=== PATIENT | female | born 1990 ===

== ENCOUNTER 2020-06-21 01:07 | Inpatient (IN) | payer OTHER ==
[2020-06-21] MEDS ORDERED: Butorphanol 1 MG/ML SDV IVPUSH PRN (01:14)
[2020-06-21] MEDS ORDERED: Terbutaline 1 MG/ML SDV SUBCUT PRN (01:14)
[2020-06-21] MEDS ORDERED: Methylergonovine 0.2 MG/1 ML Amp IM PRN (01:14)
[2020-06-21] MEDS ORDERED: Sodium Chloride 0.9% 2.5 ML Syringe FLUSH PRN (01:14)
[2020-06-21] MEDS ORDERED: Sodium Chloride 0.9% 10 ML Syringe FLUSH PRN (01:14)
[2020-06-21] MEDS ORDERED: Water For Irrigation,Sterile 1,000 ML Container IRR PRN (01:14)
[2020-06-21] MEDS ORDERED: Misoprostol 200 MCG Tab PO PRN (01:14)
[2020-06-21] MEDS ORDERED: Tranexamic Acid 1,000 MG in Sodium Chloride 0.9% 100 ML IV PRN (01:14)
[2020-06-21] MEDS ORDERED: Sodium Chloride 0.9% 10 ML SDV IV PRN (01:14)
[2020-06-21] MEDS ORDERED: Misoprostol 25 MCG (1/4 of 100 MCG) Tab VAG PRN (01:14)
[2020-06-21] MEDS ORDERED: Ondansetron 4 MG/2 ML SDV IVPUSH PRN (01:14)
[2020-06-21] MEDS ORDERED: Nalbuphine 10 MG/1 ML Vial IVPUSH PRN (01:14)
[2020-06-21] MEDS ORDERED: Lidocaine 1% 50 ML MDV INJECT PRN (01:14)
[2020-06-21] MEDS ORDERED: Carboprost Tromethamine 250 MCG/1 ML Amp IM PRN (01:14)
[2020-06-21] MEDS ORDERED: Oxytocin/0.9 % Sodium Chloride 30 UNIT/500 ML BAG IV SCH ×2 (01:15)
[2020-06-21] MEDS: Lactated Ringers 1,000 ML IV SCH ×4 (02:15→21:12)
[2020-06-21] MEDS: Misoprostol 25 MCG (1/4 of 100 MCG) Tab VAG PRN ×2 (06:07→14:36)
[2020-06-21] MEDS ORDERED: Oxytocin/0.9 % Sodium Chloride 30 UNIT/500 ML BAG ONE (19:52)
[2020-06-21] MEDS ORDERED: Ropivacaine HCl/PF 100 ML ONE (20:46)
[2020-06-21] MEDS ORDERED: fentaNYL 100 MCG/2 ML SDV ONE (20:46)
--- NOTE | 2020-06-21 21:05 | PCM.PREANE ---
Preanesthetic Assessment - Anesthesia/Transfusion/Family Hx Anesthesia History: No Prior Anesthesia Family History of Anesthesia Reaction: No Transfusion History: No Prior Transfusion(s) - Physical Assessment NPO Status Date: 06/21/20 NPO Status Time: 18:00 Height: 1.52 m Weight: 50.802 kg ASA Class: 2 - Lab Values: Laboratory Last Values WBC 7.80 K/uL (4.0-11.0) 06/21/20 01:45 RBC 4.17 M/uL (4.30-5.90) L 06/21/20 01:45 Hgb 11.3 g/dL (12.0-16.0) L 06/21/20 01:45 Hct 35.1 % (36.0-46.0) L 06/21/20 01:45 MCV 84.2 fL (80.0-98.0) 06/21/20 01:45 MCH 27.1 pg (27.0-32.0) 06/21/20 01:45 MCHC 32.2 g/dL (31.0-37.0) 06/21/20 01:45 RDW Std Deviation 41.9 fl (28.0-62.0) 06/21/20 01:45 RDW Coeff of Neelam 14 % (11.0-15.0) 06/21/20 01:45 Plt Count 346 K/uL (150-400) 06/21/20 01:45 MPV 9.20 fL (7.40-12.00) 06/21/20 01:45 Nucleated RBC % 0.0 /100WBC 06/21/20 01:45 Nucleated RBCs # 0 K/uL 06/21/20 01:45 Blood Type O POSITIVE 06/21/20 02:23 Antibody Screen NEGATIVE 06/21/20 02:23 - Allergies Allergies/Adverse Reactions: Allergies Allergy/AdvReac Type Severity Reaction Status Date / Time No Known Allergies Allergy Verified 06/20/20 13:40 - Acknowledgements Anesthesia Type Planned: Epidural Pt an Appropriate Candidate for the Planned Anesthesia: Yes Alternatives and Risks of Anesthesia Discussed w Pt/Guardian: Yes Pt/Guardian Understands and Agrees with Anesthesia Plan: Yes PreAnesthesia Questionnaire - Past Health History Medical/Surgical History: Denies Medical/Surgical History [employer] History: Reports: - SUBSTANCE USE Tobacco Use Status *Q: Never Tobacco User Second Hand Smoke Exposure: No Recreational Drug Use History: No - CURRENT (IN HOUSE) MEDS Current Meds: Current Medications Butorphanol Tartrate (Stadol) 1 mg IVPUSH Q1H PRN PRN Reason: Pain Last Admin: 06/21/20 19:56 Dose: 1 mg Documented by: Carboprost Tromethamine (Hemabate Ds) 250 mcg IM ASDIRECTED PRN PRN Reason: Post Hemorrhage Oxytocin/Sodium Chloride (Oxytocin 30 Unit/500 Ml-Ns) 30 unit in 500 mls @ 999 mls/hr IV TITRATE KENDY Tranexamic Acid 1,000 mg/ (Sodium Chloride) 110 mls @ 660 mls/hr IV ONETIME PRN PRN Reason: Bleeding Oxytocin/Sodium Chloride (Oxytocin 30 Unit/500 Ml-Ns) 30 unit in 500 mls @ 2 mls/hr IV TITRATE KENDY; Protocol Lactated Ringer's (Ringers, Lactated) 1,000 mls @ 150 mls/hr IV ASDIRECTED KENDY Last Admin: 06/21/20 19:33 Dose: 150 mls/hr Documented by: Lidocaine HCl (Xylocaine 1%) 50 ml INJECT ONETIME PRN PRN Reason: Laceration repair Methylergonovine Maleate (Methergine) 0.2 mg IM ASDIRECTED PRN PRN Reason: Post Hemorrhage Misoprostol (Cytotec) 200 mcg PO ONETIME PRN PRN Reason: Post Hemorrhage Misoprostol (Cytotec) 25 mcg VAG ONETIME PRN PRN Reason: Cervical Ripening Last Admin: 06/21/20 02:15 Dose: 25 mcg Documented by: Misoprostol (Cytotec) 25 mcg VAG Q4H PRN PRN Reason: Cervical Ripening Last Admin: 06/21/20 14:36 Dose: 25 mcg Documented by: Nalbuphine HCl (Nubain) 10 mg IVPUSH Q1H PRN PRN Reason: Pain (severe 7-10) Last Admin: 06/21/20 14:35 Dose: 10 mg Documented by: Ondansetron HCl (Zofran) 4 mg IVPUSH Q4H PRN PRN Reason: Nausea/Vomiting Last Admin: 06/21/20 17:31 Dose: 4 mg Documented by: Sodium Chloride (Saline Flush) 10 ml FLUSH ASDIRECTED PRN PRN Reason: Keep Vein Open Sodium Chloride (Saline Flush) 2.5 ml FLUSH ASDIRECTED PRN PRN Reason: Keep Vein Open Sodium Chloride (Normal Saline) 10 ml IV ASDIRECTED PRN PRN Reason: IV Use Sterile Water (Sterile Water For Irrigation) 1,000 ml IRR ASDIRECTED PRN PRN Reason: delivery Terbutaline Sulfate (Brethine) 0.25 mg SUBCUT ASDIRECTED PRN PRN Reason: Tacysystole Discontinued Medications Fentanyl (Sublimaze) Confirm Administered Dose 100 mcg .ROUTE .STK-MED ONE Stop: 06/21/20 20:47 Oxytocin/Sodium Chloride (Oxytocin 30 Unit/500 Ml-Ns) Confirm Administered Dose 30 unit in 500 mls @ as directed .ROUTE .STK-MED ONE Stop: 06/21/20 19:53 Ropivacaine (Naropin 0.2%) Confirm Administered Dose 100 mls @ as directed .ROUTE .STK-MED ONE Stop: 06/21/20 20:47
--- NOTE | 2020-06-21 21:08 | PCM.PRNOTE ---
- Free Text/Narrative Note: Anes Note Patient requests epidural for L&D. Sitting position, Level L3-L4 midline approach. Sterile technique. Chloraprep scrub to lumbar area. Sterile fenestrated draep applied. Epidural space easily achieved single attempt with ease using OMEGA technique. OMEGA at 3 cm. Cath threaded 5 cm with ease. Cath secured to skin using sterile clear adhesive dressing. Test 2039 3 cc 1.5% lido with epi negative. 2044 LOad 10 cc 0.2% lido with epi negative. 2049 Pump started with 90 cc same solution. Rate is 8 cc hr iwth 6 cc q 20 min prn bolus. Koki well. Time with patient . Marco Dixon [employer]
[2020-06-22] MEDS ORDERED: Ropivacaine HCl/PF 100 ML ONE (05:04)
[2020-06-22] MEDS ORDERED: fentaNYL 100 MCG/2 ML SDV ONE (05:04)
--- NOTE | 2020-06-22 07:00 | PCM.PRNOTE ---
- Free Text/Narrative Note: Anes Note Epidural bag replacement. Epidural infusion is complete. A new 100 cc bag of 0.2% ropiviciane with 1 mcg c c fentanyl was placed. Rate is 8 cc hr with 6 cc q 20 min prn bolus. Patient reports excellent analgesia. Time with patient [id number] Marco Dixon CRNA
[2020-06-22] MEDS ORDERED: Benzocaine/Menthol 20%-0.5% Spray 78 GM Cannister TOP PRN (07:09)
[2020-06-22] MEDS ORDERED: Ibuprofen 400 MG Tab PO PRN (07:09)
[2020-06-22] MEDS ORDERED: oxyCODONE 5 MG Tab PO PRN (07:09)
[2020-06-22] MEDS ORDERED: Witch Hazel Medicated Pads 40/Jar TOP PRN (07:09)
[2020-06-22] MEDS ORDERED: Acetaminophen 500 MG Tab PO PRN ×2 (07:09)
[2020-06-22] MEDS ORDERED: Docusate Sodium 100 MG Cap PO PRN (07:09)
[2020-06-22] MEDS ORDERED: Lanolin 100% Cream 7 GM Tube TOP PRN (07:09)
[2020-06-22] MEDS ORDERED: Bisacodyl 10 MG Supp RECTAL PRN (07:09)
--- NOTE | 2020-06-22 07:16 | PCM.DEL ---
L & D Note - General Info Date of Service: 06/22/20 Mother's Due Date: 06/09/20 - Delivery Note Labor: Augmented by ARM Cervical Ripening Method: Misoprostil Delivery Outcome: Livebirth Presentation: Left Occiput Anterior (GERI) Nuchal Cord: None Anesthesia Type: Epidural Laceration: 2nd Degree Suture type: Other (monocyrl) Suture size: 2-0 Placenta: Curettage Cord: 3 Vessels Estimated Blood Loss: 300 Resuscitation Needed: No Delivery Comments (Free Text/Narrative):: Live male delivered at 634am, pending , weight 3420g - General Info Date of Service: 06/22/20 - Patient Data Weight - Most Recent: 50.802 kg Med Orders - Current: Current Medications Acetaminophen (Tylenol Extra Strength) 500 mg PO Q4H PRN PRN Reason: Pain Acetaminophen (Tylenol Extra Strength) 1,000 mg PO Q4H PRN PRN Reason: Pain Benzocaine/Menthol (Dermoplast Pain Relief 20%-0.5% [place]) 78 gm TOP ASDIRECTED PRN PRN Reason: Perineal Comfort Measure Bisacodyl (Dulcolax) 10 mg RECTAL ONETIME PRN PRN Reason: Constipation Butorphanol Tartrate (Stadol) 1 mg IVPUSH Q1H PRN PRN Reason: Pain Last Admin: 06/21/20 19:56 Dose: 1 mg Documented by: Carboprost Tromethamine (Hemabate Ds) 250 mcg IM ASDIRECTED PRN PRN Reason: Post Hemorrhage Docusate Sodium (Colace) 100 mg PO BID PRN PRN Reason: Constipation Emollient Ointment (Lansinoh Hpa) 0 gm TOP ASDIRECTED PRN PRN Reason: Sore Nipples Oxytocin/Sodium Chloride (Oxytocin 30 Unit/500 Ml-Ns) 30 unit in 500 mls @ 999 mls/hr IV TITRATE KENDY Tranexamic Acid 1,000 mg/ (Sodium Chloride) 110 mls @ 660 mls/hr IV ONETIME PRN PRN Reason: Bleeding Oxytocin/Sodium Chloride (Oxytocin 30 Unit/500 Ml-Ns) 30 unit in 500 mls @ 2 mls/hr IV TITRATE KENDY; Protocol Last Admin: 06/22/20 05:45 Dose: 2 munits/min, 2 mls/hr Documented by: Lactated Ringer's (Ringers, Lactated) 1,000 mls @ 150 mls/hr IV ASDIRECTED KENDY Last Admin: 06/21/20 21:12 Dose: 150 mls/hr Documented by: Ibuprofen (Motrin) 400 mg PO Q4H PRN PRN Reason: Pain Ibuprofen (Motrin) 800 mg PO Q6H PRN PRN Reason: Pain Lidocaine HCl (Xylocaine 1%) 50 ml INJECT ONETIME PRN PRN Reason: Laceration repair Methylergonovine Maleate (Methergine) 0.2 mg IM ASDIRECTED PRN PRN Reason: Post Hemorrhage Last Admin: 06/22/20 06:42 Dose: 0.2 mg Documented by: Misoprostol (Cytotec) 200 mcg PO ONETIME PRN PRN Reason: Post Hemorrhage Misoprostol (Cytotec) 25 mcg VAG ONETIME PRN PRN Reason: Cervical Ripening Last Admin: 06/21/20 02:15 Dose: 25 mcg Documented by: Misoprostol (Cytotec) 25 mcg VAG Q4H PRN PRN Reason: Cervical Ripening Last Admin: 06/21/20 14:36 Dose: 25 mcg Documented by: Nalbuphine HCl (Nubain) 10 mg IVPUSH Q1H PRN PRN Reason: Pain (severe 7-10) Last Admin: 06/21/20 14:35 Dose: 10 mg Documented by: Ondansetron HCl (Zofran) 4 mg IVPUSH Q4H PRN PRN Reason: Nausea/Vomiting Last Admin: 06/21/20 17:31 Dose: 4 mg Documented by: Oxycodone HCl (Oxycodone) 5 mg PO Q2H PRN PRN Reason: Pain Sodium Chloride (Saline Flush) 10 ml FLUSH ASDIRECTED PRN PRN Reason: Keep Vein Open Sodium Chloride (Saline Flush) 2.5 ml FLUSH ASDIRECTED PRN PRN Reason: Keep Vein Open Sodium Chloride (Normal Saline) 10 ml IV ASDIRECTED PRN PRN Reason: IV Use Sterile Water (Sterile Water For Irrigation) 1,000 ml IRR ASDIRECTED PRN PRN Reason: delivery Terbutaline Sulfate (Brethine) 0.25 mg SUBCUT ASDIRECTED PRN PRN Reason: Tacysystole Witch Deborah (Tucks) 1 pad TOP ASDIRECTED PRN PRN Reason: comfort care Discontinued Medications Fentanyl (Sublimaze) Confirm Administered Dose 100 mcg .ROUTE .STK-MED ONE Stop: 06/21/20 20:47 Fentanyl (Sublimaze) Confirm Administered Dose 100 mcg .ROUTE .STK-MED ONE Stop: 06/22/20 05:05 Oxytocin/Sodium Chloride (Oxytocin 30 Unit/500 Ml-Ns) Confirm Administered Dose 30 unit in 500 mls @ as directed .ROUTE .STK-MED ONE Stop: 06/21/20 19:53 Ropivacaine (Naropin 0.2%) Confirm Administered Dose 100 mls @ as directed .ROUTE .STK-MED ONE Stop: 06/21/20 20:47 Ropivacaine (Naropin 0.2%) Confirm Administered Dose 100 mls @ as directed .ROUTE .STK-MED ONE Stop: 06/22/20 05:05 - Problem List & Annotations (1) care and examination immediately after delivery SNOMED Code(s): 89397878, 281871490 Code(s): Z39.0 - ENCNTR FOR CARE AND EXAM OF MOTHER IMMEDIATELY AFTER DEL Status: Acute Current Visit: Yes - Problem List Review Problem List Initiated/Reviewed/Updated: Yes - My Orders Last 24 Hours: My Active Orders 06/22/20 07:09 Patient Status [ADT] Routine May Shower [RC] ASDIRECTED Up ad Trudy [RC] ASDIRECTED Vital Signs [RC] PER UNIT ROUTINE Acetaminophen [Tylenol Extra Strength] 1,000 mg PO Q4H PRN Acetaminophen [Tylenol Extra Strength] 500 mg PO Q4H PRN Benzocaine/Menthol [Dermoplast Pain Relief 20%-0.5% [place]] 78 gm TOP ASDIRECTED PRN Docusate Sodium [Colace] 100 mg PO BID PRN Ibuprofen [Motrin] 400 mg PO Q4H PRN Ibuprofen [Motrin] 800 mg PO Q6H PRN Lanolin [Lansinoh HPA] See Dose Instructions TOP ASDIRECTED PRN bisacodyL [Dulcolax] 10 mg RECTAL ONETIME PRN oxyCODONE 5 mg PO Q2H PRN witch Deborah [Tucks] 1 pad TOP ASDIRECTED PRN Assess Lochia [WOMSER] Per Unit Routine Assess Uterine Involution [WOMSER] Per Unit Routine Peripheral IV Discontinue [OM.PC] Routine Resuscitation Status Routine 06/23/20 05:11 HEMOGLOBIN/HEMATOCRIT,HH [HEME] Timed - Assessment Assessment:: 29yo P1011 s/p
[2020-06-22] MEDS: Ibuprofen 800 MG Tab PO PRN (08:13)
--- NOTE | 2020-06-22 21:21 | PCM48HPAN ---
Post Anesthesia Note - EVALUATION WITHIN 48HRS OF ANESTHETIC Vital Signs in Normal Range: Yes Patient Participated in Evaluation: Yes Respiratory Function Stable: Yes Airway Patent: Yes Cardiovascular Function Stable: Yes Hydration Status Stable: Yes Pain Control Satisfactory: Yes Nausea and Vomiting Control Satisfactory: Yes Mental Status Recovered: Yes Vital Signs: Last Vital Signs Temp 36.8 C 06/22/20 19:37 Pulse 84 06/22/20 19:37 Resp 16 06/22/20 19:37 BP 114/70 06/22/20 19:37 Pulse Ox 96 06/22/20 19:37 - COMMENTS/OBSERVATIONS Free Text/Narrative:: Patient doing well. Back is a little sore.
[2020-06-23] MEDS: Ibuprofen 800 MG Tab PO PRN ×2 (04:09→18:48)
--- NOTE | 2020-06-23 08:35 | PCM.PNPP ---
- General Info Date of Service: 06/23/20 Subjective Update: Patient doing well. Minimal lochia. Latching going well so far. Functional Status: Reports: Pain Controlled, Tolerating Diet, Ambulating, Urinating - Review of Systems General: Reports: No Symptoms HEENT: Reports: No Symptoms Pulmonary: Reports: No Symptoms Cardiovascular: Reports: No Symptoms Gastrointestinal: Reports: No Symptoms Genitourinary: Reports: No Symptoms Musculoskeletal: Reports: No Symptoms Skin: Reports: No Symptoms Neurological: Reports: No Symptoms Psychiatric: Reports: No Symptoms - Patient Data Vital Signs - Most Recent: Last Vital Signs Temp 36.7 C 06/23/20 03:59 Pulse 77 06/23/20 03:59 Resp 16 06/23/20 03:59 BP 119/67 06/23/20 03:59 Pulse Ox 97 06/23/20 03:59 Weight - Most Recent: 50.802 kg Lab Results - Last 24 Hours: Laboratory Results - last 24 hr 06/22/20 06/22/20 06/23/20 Range/Units 06:34 06:34 04:45 Hgb 10.4 L (12.0-16.0) g/dL Hct 31.9 L (36.0-46.0) % Cord ABG pH 7.294 (7.18-7.38) Cord ABG Base Excess -6 (-10--2) Cord VBG pH 7.321 (7.25-7.45) Cord VBG Base Excess -4 (-10--2) Med Orders - Current: Current Medications Acetaminophen (Tylenol Extra Strength) 500 mg PO Q4H PRN PRN Reason: Pain Acetaminophen (Tylenol Extra Strength) 1,000 mg PO Q4H PRN PRN Reason: Pain Benzocaine/Menthol (Dermoplast Pain Relief 20%-0.5% [facility]) 78 gm TOP ASDIRECTED PRN PRN Reason: Perineal Comfort Measure Last Admin: 06/22/20 08:11 Dose: 1 canister Documented by: Bisacodyl (Dulcolax) 10 mg RECTAL ONETIME PRN PRN Reason: Constipation Butorphanol Tartrate (Stadol) 1 mg IVPUSH Q1H PRN PRN Reason: Pain Last Admin: 06/21/20 19:56 Dose: 1 mg Documented by: Carboprost Tromethamine (Hemabate Ds) 250 mcg IM ASDIRECTED PRN PRN Reason: Post Hemorrhage Docusate Sodium (Colace) 100 mg PO BID PRN PRN Reason: Constipation Emollient Ointment (Lansinoh Hpa) 0 gm TOP ASDIRECTED PRN PRN Reason: Sore Nipples Last Admin: 06/22/20 08:12 Dose: 7 g Documented by: Oxytocin/Sodium Chloride (Oxytocin 30 Unit/500 Ml-Ns) 30 unit in 500 mls @ 999 mls/hr IV TITRATE KENDY Tranexamic Acid 1,000 mg/ (Sodium Chloride) 110 mls @ 660 mls/hr IV ONETIME PRN PRN Reason: Bleeding Oxytocin/Sodium Chloride (Oxytocin 30 Unit/500 Ml-Ns) 30 unit in 500 mls @ 2 mls/hr IV TITRATE KENDY; Protocol Last Titration: 06/22/20 06:00 Dose: 6 munits/min, 6 mls/hr Documented by: Lactated Ringer's (Ringers, Lactated) 1,000 mls @ 150 mls/hr IV ASDIRECTED KENDY Last Admin: 06/21/20 21:12 Dose: 150 mls/hr Documented by: Ibuprofen (Motrin) 400 mg PO Q4H PRN PRN Reason: Pain Ibuprofen (Motrin) 800 mg PO Q6H PRN PRN Reason: Pain Last Admin: 06/23/20 04:09 Dose: 800 mg Documented by: Lidocaine HCl (Xylocaine 1%) 50 ml INJECT ONETIME PRN PRN Reason: Laceration repair Methylergonovine Maleate (Methergine) 0.2 mg IM ASDIRECTED PRN PRN Reason: Post Hemorrhage Last Admin: 06/22/20 06:42 Dose: 0.2 mg Documented by: Misoprostol (Cytotec) 200 mcg PO ONETIME PRN PRN Reason: Post Hemorrhage Misoprostol (Cytotec) 25 mcg VAG ONETIME PRN PRN Reason: Cervical Ripening Last Admin: 06/21/20 02:15 Dose: 25 mcg Documented by: Misoprostol (Cytotec) 25 mcg VAG Q4H PRN PRN Reason: Cervical Ripening Last Admin: 06/21/20 14:36 Dose: 25 mcg Documented by: Nalbuphine HCl (Nubain) 10 mg IVPUSH Q1H PRN PRN Reason: Pain (severe 7-10) Last Admin: 06/21/20 14:35 Dose: 10 mg Documented by: Ondansetron HCl (Zofran) 4 mg IVPUSH Q4H PRN PRN Reason: Nausea/Vomiting Last Admin: 06/21/20 17:31 Dose: 4 mg Documented by: Oxycodone HCl (Oxycodone) 5 mg PO Q2H PRN PRN Reason: Pain Sodium Chloride (Saline Flush) 10 ml FLUSH ASDIRECTED PRN PRN Reason: Keep Vein Open Sodium Chloride (Saline Flush) 2.5 ml FLUSH ASDIRECTED PRN PRN Reason: Keep Vein Open Sodium Chloride (Normal Saline) 10 ml IV ASDIRECTED PRN PRN Reason: IV Use Sterile Water (Sterile Water For Irrigation) 1,000 ml IRR ASDIRECTED PRN PRN Reason: delivery Terbutaline Sulfate (Brethine) 0.25 mg SUBCUT ASDIRECTED PRN PRN Reason: Tacysystole Witch Deborah (Tucks) 1 pad TOP ASDIRECTED PRN PRN Reason: comfort care Last Admin: 06/22/20 08:11 Dose: 1 tub Documented by: Discontinued Medications Fentanyl (Sublimaze) Confirm Administered Dose 100 mcg .ROUTE .STK-MED ONE Stop: 06/21/20 20:47 Fentanyl (Sublimaze) Confirm Administered Dose 100 mcg .ROUTE .STK-MED ONE Stop: 06/22/20 05:05 Oxytocin/Sodium Chloride (Oxytocin 30 Unit/500 Ml-Ns) Confirm Administered Dose 30 unit in 500 mls @ as directed .ROUTE .STK-MED ONE Stop: 06/21/20 19:53 Ropivacaine (Naropin 0.2%) Confirm Administered Dose 100 mls @ as directed .ROUT E .STK-MED ONE Stop: 06/21/20 20:47 Ropivacaine (Naropin 0.2%) Confirm Administered Dose 100 mls @ as directed .ROUTE .STK-MED ONE Stop: 06/22/20 05:05 - Interaction Disposition, : [place] to Nursery Feeding: Breastfed Infant; Nursed Well Support Person: - Recovery Exam Fundal Tone: Firm Fundal Level: 1 Fingerbreadths Above Umbilicus Fundal Placement: Midline Lochia Amount: Scant Bladder Status: Voiding Urinary Elimination: Voided - Exam General: Alert, Oriented Neck: Supple Lungs: Normal Respiratory Effort GI/Abdominal Exam: Soft, Non-Tender, No Distention Extremities: No Pedal Edema Skin: Warm, Dry, Intact Neurological: No New Focal Deficit Psy/Mental Status: Alert, Normal Affect, Normal Mood - Problem List & Annotations (1) Vaginal delivery SNOMED Code(s): 304115391 Code(s): O80 - ENCOUNTER FOR FULL-TERM UNCOMPLICATED DELIVERY Status: Acute Current Visit: Yes - Problem List Review Problem List Initiated/Reviewed/Updated: Yes - My Orders Last 24 Hours: My Active Orders 06/23/20 08:33 Ready for Discharge [RC] PER UNIT ROUTINE - Assessment Assessment:: 29yo s/p at 40w6d, PPD#1 - Plan Plan:: Patient desires discharge today. Reviewed all discharge instructions/precautions. All questions answered, encouraged to call if any questions or concerns.
--- NOTE | 2020-06-23 12:57 | OR ---
SURGEON: IRWIN GUERIN DATE OF PROCEDURE: 06/23/2020 PREOPERATIVE DIAGNOSES: A 29-year-old G2, P0-0-1-0 at 41 weeks and 6 days, admitted for induction of labor secondary to postdates. POSTOPERATIVE DIAGNOSES: A 29-year-old G2, P0-0-1-0 at 41 weeks and 6 days, admitted for induction of labor secondary to postdates. PROCEDURES: 1. Normal spontaneous vaginal delivery. 2. Repair of second-degree vaginal laceration. ESTIMATED BLOOD LOSS: 300. INTRAVENOUS FLUIDS: Pitocin running. COMPLICATIONS: None. NOTES AND FINDINGS: Live male delivered at 6:34 a.m. scores of 6 and 8. Weight is 3420 g. BRIEF HISTORY ABOUT THE PATIENT: She was a low-risk patient who came in for induction of labor. She was found to be closed. She received about 3 doses of Cytotec. She then made change to 3 cm to 4 cm. AROM was done, and she then made good progress, and she became fully dilated. DESCRIPTION OF PROCEDURE: With the patient fully dilated, she was encouraged to push. With good pushing effort, she delivered the head, subsequently by the anterior and posterior shoulder. The body of the infant was delivered. Infant was placed on maternal abdomen. The cord was clamped and cut. Cord blood gases were obtained. The placenta was delivered via controlled cord traction. The perineum was inspected. A second-degree laceration was noted, which was repaired in layer with 2-0 Monocryl. A little bit of bleeding was noted, so Methergine was given after which the uterus was found to be contracted properly and lochia was very minimal. All instrument and pad counts were correct x2. The patient tolerated the procedure well and was left in Labor and Delivery room in stable condition. RISHABH / SULY /[id number]
== END 2020-06-23 19:30 | disposition home or self-care (01) | DRG 807 ==
LOC: MW.OBCHECK 01:07 → MW.OB 01:08 → MW.OBCHECK 01:14 → OBSVTOIN 06-22 06:34 → MW.OB 06-22 09:49
PROVIDERS: ADMIT Obstetrics & Gynecology; ATTEND Obstetrics & Gynecology
PROC: 10E0XZZ Delivery of Products of Conception, External Approach (ICD-10-PCS; principal; 2020-06-22)
PROC: 0KQM0ZZ Repair Perineum Muscle, Open Approach (ICD-10-PCS; 2020-06-22)
PROC: 10907ZC Drainage of Amniotic Fluid, Therapeutic from Products of Conception, Via Natural or Artificial Opening (ICD-10-PCS; 2020-06-22)
PROC: 3E0P7VZ Introduction of Hormone into Female Reproductive, Via Natural or Artificial Opening (ICD-10-PCS; 2020-06-22)
PROC: 3E0R3BZ Introduction of Anesthetic Agent into Spinal Canal, Percutaneous Approach (ICD-10-PCS; 2020-06-22)
PROC: 00HU33Z Insertion of Infusion Device into Spinal Canal, Percutaneous Approach (ICD-10-PCS; 2020-06-22)
DX: O48.0 Post-term pregnancy (principal); Z37.0 Single live birth; O70.1 Second degree perineal laceration during delivery; Z3A.41 41 weeks gestation of pregnancy
CPT/HCPCS: 36415; 51702; 59409; 82803; 85014; 85018; 85027; 86592; 86850; 86900; 86901; A9270-GY; J0595; J2210; J2300; J2405; J2590; J2795; J3010; J7120